=== PATIENT | female | born 1960 | race Caucasian/White ===

== ENCOUNTER → 2024-10-24 | Outpatient (CLI) | LOC: M SOG 07:48 | PROVIDERS: ATTEND Physician Assistant | DX: M79.645 Pain in left finger(s) (principal); M19.042 Primary osteoarthritis, left hand ==

== ENCOUNTER → 2024-11-18 | Outpatient (CLI) | payer OTHER | LOC: M RAD 06:44 | PROVIDERS: ATTEND Otolaryngology | DX: H71.02 Cholesteatoma of attic, left ear (principal) ==